=== PATIENT | female | born 1990 | race Native Hawaiian/Other Pacific Islander ===

== ENCOUNTER 2018-10-10 06:15 | Emergency (ER) | payer OTHER ==
[2018-10-10 06:26] VITALS: TEMP 97.4; O2SAT 100
[2018-10-10] MEDS ORDERED: Lidocaine 5% Patch TD STA (07:53)
[2018-10-10] MEDS ORDERED: Lidocaine 5% Patch TD ONE (08:06)
[2018-10-10 08:57] VITALS: BP 103/68; PULSE 67; RESP 18
--- NOTE | 2018-10-10 08:59 | C.PDOC ---
History Of Present Illness 28 year old female presents for evaluation of right neck pain radiating to the right shoulder after waking up at 5:30am today. Denies recent injuries, numbness, tingling, and any other associated symptoms. Time Seen by Provider: 10/10/18 07:10 Chief Complaint (Nursing): Upper Extremity Problem/Injury History Per: Patient History/Exam Limitations: no limitations Onset/Duration Of Symptoms: Hrs Current Symptoms Are (Timing): Still Present Recent travel outside of the [place]: No Past Medical History Reviewed: Historical Data, Nursing Documentation, Vital Signs Vital Signs: Last Vital Signs Temp 97.4 F L 10/10/18 06:21 Pulse 74 10/10/18 06:21 Resp 20 10/10/18 06:21 BP 128/76 10/10/18 06:21 Pulse Ox 100 10/10/18 06:21 Family History: States: Unknown Family Hx - Social History Hx Alcohol Use: No Hx Substance Use: No Review Of Systems Except As Marked, All Systems Reviewed And Found Negative. Constitutional: Negative for: Other (recent injuries. ) Musculoskeletal: Positive for: Neck Pain (right sided. ) Neurological: Negative for: Weakness, Numbness, Incoordination Physical Exam - Physical Exam Appears: Non-toxic, No Acute Distress Skin: Warm, Dry Head: Atraumatic, Normacephalic Eye(s): bilateral: Normal Inspection Oral Mucosa: Moist Neck: Normal ROM, Supple, Other ((+) muscle spasm. (+) tenderness of lateral neck muscles. (+) tenderness to the right side of trapezius. (+) tenderness to sternocleidomastoid.) Chest: Symmetrical, No Deformity Cardiovascular: Rhythm Regular, No Murmur Respiratory: Normal Breath Sounds, No Rales, No Rhonchi, No Wheezing Gastrointestinal/Abdominal: Normal Exam, Soft, No Tenderness Extremity: Bilateral: Atraumatic, Normal Color And Temperature, Normal ROM Neurological/Psych: Oriented x3, Normal Speech, Normal Cognition ED Course And Treatment O2 Sat by Pulse Oximetry: 100 (RA) Pulse Ox Interpretation: Normal - Other Rad C-spine X-ray X-Ray: Viewed By Me, Read By Radiologist Interpretation: Findings: Cervical spine is visualized from the C1 through C7 levels. No prevertebral soft tissue swelling. Straightening of the normal cervical lordosis. No evidence of acute displaced fracture or dislocation. Few inferior endplate concavities throughout the cervical spine. Impression: Mild degenerative changes. If pain persists, consider correlation with MRI. Medical Decision Making Medical Decision Making: Initial plan: -Motrin -Valium -Lidoderm -x-ray C-spine AP & Lateral -HCG Urine Progress/Update: X-ray shows straightening of psysiological lordosis. After medications pt states feeling better. Pt stable for discharge home. Disposition - Disposition Disposition: HOME/ ROUTINE Disposition Time: 08:57 Condition: STABLE Additional Instructions: Follow up with your PMD within 1-2 days. Return to ED if feel worse. Prescriptions: Lidocaine 5% [Lidoderm] 1 patch TP DAILY #15 patch Ibuprofen [Motrin Tab] 400 mg PO Q8 #30 tab diaZEpam [Valium] 2 mg PO TID #15 tab Instructions: Muscle Spasms (DC) Forms: [employer] (Maltese) - Clinical Impression Clinical Impression: Torticollis, acute - PA / RESEARCH PROGRAMMER / Resident Statement MD/DO has reviewed & agrees with the documentation as recorded. - Scribe Statement The provider has reviewed the documentation as recorded by the Scribe (Moni Thomason) All medical record entries made by the Scribe were at my direction and personally dictated by me. I have reviewed the chart and agree that the record accurately reflects my personal performance of the history, physical exam, medical decision making, and the department course for this patient. I have also personally directed, reviewed, and agree with the discharge instructions and disposition.
--- NOTE | 2018-10-10 09:11 | RAD ---
Cervical spine three views History: Neck pain. Comparison: None available. Findings: Cervical spine is visualized from the C1 through C7 levels. No prevertebral soft tissue swelling. Straightening of the normal cervical lordosis. No evidence of acute displaced fracture or dislocation. Few inferior endplate concavities throughout the cervical spine. Impression: Mild degenerative changes. If pain persists, consider correlation with MRI.
== END 2018-10-10 09:08 | disposition home or self-care (01) ==
LOC: C.ER 06:15
DX: M43.6 Torticollis (principal)

== ENCOUNTER 2018-10-10 21:51 | Emergency (ER) | payer SELFPAY ==
--- NOTE | 2018-10-10 22:02 | C.PDOC ---
History Of Present Illness 28-year-old female presents to the emergency department with complaints of hyperventilating for the last 30 minutes prior to arrival. Patient was evaluated earlier today for torticollis with pain in right neck and right shoulder. Merlene talavera was discharged with a lidocaine patch, Motrin, and Valium however returns to the ED with hyperventilation. Patient denies prolonged sitting, recent travel, and trauma. Also complains of her fingers tingling.Most of the history obtained from patients . Time Seen by Provider: 10/10/18 22:01 Chief Complaint (Nursing): Shortness Of Breath History Per: Family () History/Exam Limitations: no limitations Onset/Duration Of Symptoms: Mins (30), Waxing/Waning Associated Symptoms: Anxiety, Other (hyperventilation) Past Medical History Reviewed: Historical Data, Nursing Documentation, Vital Signs Vital Signs: Last Vital Signs Temp 98.7 F 10/10/18 21:53 Pulse 88 10/10/18 21:53 Resp 26 H 10/10/18 21:53 BP Pulse Ox 99 10/10/18 21:53 - Medical History PMH: No Chronic Diseases Surgical History: No Surg Hx Family History: States: No Known Family Hx - Social History Hx Alcohol Use: No Hx Substance Use: No Review Of Systems Constitutional: Negative for: Fever, Chills Cardiovascular: Negative for: Chest Pain Respiratory: Positive for: Other (hyperventilation). Negative for: Cough Psych: Positive for: Anxiety Physical Exam - Physical Exam Appears: In Acute Distress (extremely anxious) Skin: Warm, Dry Head: Normacephalic Eye(s): bilateral: Normal Inspection, PERRL, EOMI Oral Mucosa: Moist Throat: No Erythema, No Exudate Neck: Normal ROM, No Midline Cervical Tenderness, Paracervical Tenderness (right-sided neck tenderness) Chest: Symmetrical, No Tenderness Cardiovascular: Rhythm Regular, No Murmur Respiratory: No Rales, No Rhonchi, No Wheezing Gastrointestinal/Abdominal: Soft, No Tenderness, No Guarding, No Rebound Extremity: Normal ROM, No Tenderness Neurological/Psych: Oriented x3 ED Course And Treatment - Laboratory Results Result Diagrams: 10/10/18 22:30 10/10/18 22:30 ECG: Interpreted By Me, Viewed By Me ECG Rhythm: Sinus Rhythm (84), Nonspecific Changes O2 Sat by Pulse Oximetry: 99 (RA) Pulse Ox Interpretation: Normal Progress Note: Plan: ABG. EKG. Chemistry. Hematology. NaCl IV Fluids. Urinalysis. 11:30 pm pf feels fine. No longer hyperventilating (after she was placed on a nrmnot attached to oxygen) and no longer having tingling in her fingers Reevaluation Time: 23:29 Reassessment Condition: Improved Medical Decision Making Medical Decision Making: Upon provider reevaluation patient is feeling better, is medically stable, and requires no further treatment in the ED at this time. Patient will be discharged home . Counseling was provided and all questions were answered regarding diagnosis and need for follow up with the referred clinic. There is agreement to discharge plan. Return if symptoms persist or worsen. Disposition Counseled Patient/Family Regarding: Studies Performed, Diagnosis, Need For Followup - Disposition Referrals: [facility] [Outside] [facility] [Outside] Disposition: HOME/ ROUTINE Disposition Time: 22:02 Condition: FAIR Additional Instructions: Please return if symptoms recur Instructions: Hyperventilation, Anxiety, Adult (DC) Forms: [employer] (Panamanian) - Clinical Impression Clinical Impression: Anxiety, Hyperventilating - Scribe Statement The provider has reviewed the documentation as recorded by the Scribe (Kush Hsu) Provider Attestation: All medical record entries made by the Scribe were at my direction and personally dictated by me. I have reviewed the chart and agree that the record accurately reflects my personal performance of the history, physical exam, medical decision making, and the department course for this patient. I have also personally directed, reviewed, and agree with the discharge instructions and disposition.
[2018-10-10] MEDS ORDERED: Sodium Chloride 0.9% 1,000 ML IV ONE (22:18)
[2018-10-10 22:33] LABS: BASO # 0.1 K/uL (0.0-0.2); BASO % 1.2 % (0.0-2.0); EOS # 0.1 K/uL (0.0-0.7); EOS % 1.3 % (0.0-4.0); HEMOGLOBIN 13.7 g/dL (11.0-16.0); LYMPH # 3.2 K/uL (1.0-4.3); LYMPH % 42.7 % (20.0-40.0); MEAN CELL VOLUME 88.1 fL (81.0-99.0); MEAN CORPUSCULAR HEMOGLOBIN 29.5 pg (27.0-31.0); MEAN CORPUSCULAR HGB CONC 33.5 g/dL (33.0-37.0); MEAN PLATELET VOLUME 8.5 fL (7.2-11.7); MONO # 0.7 K/uL (0.0-0.8); MONO % 9.8 % (0.0-10.0); NEUT # 3.3 K/uL (1.8-7.0); RBC 4.64 Mil/uL (3.80-5.20); RED CELL DISTRIBUTION WIDTH 12.9 % (11.5-14.5); WHITE BLOOD COUNT 7.4 K/uL (4.8-10.8)
[2018-10-10 22:42] LABS: PARTIAL THROMBOPLASTIN TIME 29 SECONDS (21-34); PROTHROMBIN TIME 11.4 SECONDS (9.7-12.2)
[2018-10-10 22:43] LABS: D DIMER < 200.0 ng/mlDDU (0-243)
[2018-10-10 22:45] LABS: ALB/GLOB RATIO 1.4 (1.0-2.1); ALBUMIN 4.7 g/dL (3.5-5.0); BLOOD UREA NITROGEN 11 mg/dL (7-17); CALCIUM 10.1 mg/dl (8.6-10.4); GFR NON-AFRICAN AMERICAN > 60
[2018-10-10 22:50] LABS: ARTERIAL BLOOD GAS HCO3 22.8 mmol/L (21-28); ARTERIAL BLOOD GAS PCO2 32 mm/Hg (35-45); ARTERIAL BLOOD GAS PH 7.42 (7.35-7.45); ARTERIAL BLOOD GAS PO2 98 mm/Hg (80-100); ARTERIAL BLOOD GAS TCO2 21.8 mmol/L (22-28)
[2018-10-10 22:55] LABS: ALT/SGPT 11 U/L (9-52); AST/SGOT 28 U/L (14-36)
[2018-10-10 23:26] LABS: SQUAMOUS EPITHIAL 1 /hpf (0-5); URINE BILIRUBIN NEGATIVE (NEGATIVE); URINE BLOOD NEGATIVE (NEGATIVE); URINE CLARITY Clear (Clear); URINE COLOR Straw (YELLOW); URINE GLUCOSE (UA) NORMAL (Normal); URINE LEUKOCYTE ESTERASE NEG Leu/uL (Negative); URINE PROTEIN NEGATIVE (NEGATIVE); URINE UROBILINOGEN NORMAL mg/dL (0.2-1.0)
[2018-10-10 23:44] VITALS: BP 115/78; PULSE 75; RESP 14; TEMP 98.2; O2SAT 100
--- NOTE | 2018-10-13 15:38 | CARD ---
APPROVED REPORT Date of service: 10/10/2018 EKG Measurement Heart [id number] <Conclusion> Normal sinus rhythm Normal ECG
== END 2018-10-10 23:46 | disposition home or self-care (01) ==
LOC: C.ER 21:51
DX: F41.9 Anxiety disorder, unspecified (principal); R06.4 Hyperventilation
CPT/HCPCS: 80053; 81001; 82803; 83735; 84443; 85025; 85378; 85610; 85730; 96360; 99284; J7030